=== PATIENT | female | born 1990 | race African-American/Black ===

== ENCOUNTER 2022-11-05 21:00 | Emergency (ER) | payer MEDICAID ==
[~2022-11-05] VITALS: Ht 190.5 cm; Wt 138.3 kg
--- NOTE | 2022-11-05 21:00 | NUR ---
Pt brought by self, A&Ox4, pt presents to ER with abdominal pain, N/V, dizziness, BS 454, pt has not taking diabetes medications for 2 months, skin pink and warm, cap refill <3, VSS
[2022-11-05 21:25] VITALS: BP_SYST 135
--- NOTE | 2022-11-05 21:25 | NUR ---
Pt blood sugar checked 454.
[2022-11-06 00:12] LABS: BILIRUBIN,URINE NEGATIVE (NEGATIVE); BLOOD, URINE 3+ (NEGATIVE); CLARITY/URINE SL CLOUDY (CLEAR); COLOR,URINE YELLOW (YELLOW); GLUCOSE,URINE 3+ (NEGATIVE); KETONES,URINE NEGATIVE (NEGATIVE); LEUKOCYTE ESTERASE ,URINE NEGATIVE (NEGATIVE); NITRITE, URINE NEGATIVE (NEGATIVE); PROTEIN URINE NEGATIVE (NEGATIVE); UROBILINOGEN,URINE 0.2 (0.2-1.0)
[2022-11-06 00:39] LABS: BACTERIA,URINE None Seen /HPF (None Seen); RBC,URINE 80-100 /HPF (0-3); WBC,URINE 0-3 /HPF (0-3)
--- NOTE | 2022-11-06 01:13 | NUR ---
Per structural ironworker, pt stated "I am leaving." Pt LWBS.
== END 2022-11-06 01:13 | disposition left against medical advice (07) ==
LOC: SED 21:00
DX: R10.9 Unspecified abdominal pain (principal); R11.10 Vomiting, unspecified; R42 Dizziness and giddiness; Z53.21 Procedure and treatment not carried out due to patient leaving prior to being seen by health care provider
CPT/HCPCS: 81000

== ENCOUNTER → 2023-03-30 | Emergency (ER) | payer MEDICAID ==
[~2023-03-30] VITALS: Ht 182.9 cm; Wt 130.2 kg
[2023-03-30 12:08] VITALS: BP_SYST 137
== END | disposition left against medical advice (07) ==
LOC: SED 11:33
DX: L02.211 Cutaneous abscess of abdominal wall (principal); Z53.21 Procedure and treatment not carried out due to patient leaving prior to being seen by health care provider
CPT/HCPCS: 99281